=== PATIENT | female | born 1955 | race Caucasian/White ===

== ENCOUNTER → 2021-08-22 15:11 | Outpatient (CLI) | payer MEDICARE, BC, OTHER, SELFPAY ==
[2021-08-22 14:06] LABS: Alanine Aminotransferase 25 U/L (12-78); Albumin Level 4.3 g/dl (3.5-5.0); Albumin/Globulin Ratio 1.3 (1.1-1.8); Anion Gap 14.7 mEq/L (5-15); Aspartate Amino Transferase 31 U/L (14-36); Bilirubin,Total 0.2 mg/dl (0.2-1.3); Blood Urea Nitrogen 16 mg/dl (7-17); Carbon Dioxide 24 mmol/L (22.0-30.0); Chloride 105 mmol/L (98-107); Estimated Glomerular Filt Rate 72 ml/min (>60); GFR (African American) 87 ML/MIN (>60); Globulin 3.4 g/dL (1.3-3.2); Glucose 120 mg/dl (74-100); Potassium 4.7 mmoL/L (3.5-5.1); Sodium 139 mmol/L (136-145); Total Protein,Serum 7.7 g/dl (6.3-8.2); Triglycerides 144 mg/dl (30-150)
[2021-08-22 14:07] LABS: Alkaline Phosphatase 111 U/L (38-126); Basophils # 0.1 K/mm3 (0-0.2); Basophils % 0.9 % (0.1-2.0); Chol/HDL Ratio 4.2 (1-3.5); Cholesterol 208 mg/dl (140-200); Eosinophils # 0.2 K/mm3 (0.0-0.4); Eosinophils % 2.3 % (0.1-12.0); HDL Cholesterol 50 mg/dl (40-60); Hematocrit 48.3 % (37.0-47.0); Lymphocytes % 27.6 % (10-50); Mean Corpuscular HGB Conc 31.1 g/dL (31.8-35.4); Mean Corpuscular Hemoglobin 30.7 pg (27.0-31.2); Mean Corpuscular Volume 98.7 fl (81-99); Mean Platelet Volume 9.2 fl (7.4-10.4); Monocytes # 0.7 K/mm3 (0.1-1.0); Neutrophils # 4.4 K/mm3 (1.8-7.8); Neutrophils % 60.2 % (37.0-80.0); Platelet Count 352 K/mm3 (142-424); Red Blood Count 4.89 M/mm3 (4.20-5.40); Red Cell Distribution Width 13.6 % (11.5-17.5); VLDL Cholesterol 29 mg/dL (0-40); White Blood Count 7.4 K/mm3 (4.8-10.8)
[2021-08-22 14:18] LABS: Direct LDL Cholesterol 117.48 mg/dL (100-129)
[2021-08-22 14:21] LABS: T4 (Thyroxine) 11.7 ug/dl (5.53-11.0)
[2021-08-22 14:22] LABS: 25-OH Vitamin D, Total 36.7 ng/mL (30-100)
[2021-08-22 14:35] LABS: Thyroid Stimulating Hormone < 0.02 uIU/mL (0.465-4.68)
== END ==
PROVIDERS: PCP Nurse Practitioner Family; Visit Provider Nurse Practitioner Family
DX: I10 Essential (primary) hypertension (principal); E78.2 Mixed hyperlipidemia; R53.83 Other fatigue; Z00.00 Encounter for general adult medical examination without abnormal findings; E03.9 Hypothyroidism, unspecified; E55.9 Vitamin D deficiency, unspecified
CPT/HCPCS: 80053; 80061; 82306; 84436; 84443; 85025

== ENCOUNTER → 2022-04-17 09:30 | Outpatient (CLI) | payer MEDICARE, BC, OTHER, SELFPAY ==
[2022-04-17 14:11] LABS: Basophils # 0.1 K/mm3 (0-0.2); Basophils % 0.8 % (0.1-2.0); Eosinophils # 0.1 K/mm3 (0.0-0.4); Eosinophils % 1.8 % (0.1-12.0); Hematocrit 44.3 % (37.0-47.0); Hemoglobin 14.4 g/dL (12.2-16.2); Lymphocytes # 1.9 K/mm3 (0.7-4.5); Lymphocytes % 23.7 % (10-50); Mean Corpuscular HGB Conc 32.4 g/dL (31.8-35.4); Mean Corpuscular Hemoglobin 30.3 pg (27.0-31.2); Mean Corpuscular Volume 93.3 fl (81-99); Mean Platelet Volume 8.9 fl (7.4-10.4); Monocytes # 0.6 K/mm3 (0.1-1.0); Monocytes % 7.5 % (1.7-9.3); Neutrophils # 5.2 K/mm3 (1.8-7.8); Neutrophils % 66.1 % (37.0-80.0); Platelet Count 360 K/mm3 (142-424); Red Blood Count 4.75 M/mm3 (4.20-5.40); Red Cell Distribution Width 13.2 % (11.5-17.5); White Blood Count 7.8 K/mm3 (4.8-10.8)
[2022-04-17 14:42] LABS: Alanine Aminotransferase 23 U/L (12-78); Albumin Level 4.4 g/dl (3.5-5.0); Albumin/Globulin Ratio 1.4 (1.1-1.8); Alkaline Phosphatase 110 U/L (38-126); Anion Gap 9.4 mEq/L (5-15); Aspartate Amino Transferase 33 U/L (14-36); Bilirubin,Total 0.5 mg/dl (0.2-1.3); Blood Urea Nitrogen 9 mg/dl (7-17); Calcium 9.1 mg/dl (8.4-10.2); Carbon Dioxide 24 mmol/L (22.0-30.0); Chloride 109 mmol/L (98-107); Chol/HDL Ratio 3.6 (1-3.5); Cholesterol 195 mg/dl (140-200); Estimated Glomerular Filt Rate 83 ml/min (>60); GFR (African American) 101 ML/MIN (>60); Globulin 3.2 g/dL (1.3-3.2); Glucose 120 mg/dl (74-100); HDL Cholesterol 54 mg/dl (40-60); Potassium 4.4 mmoL/L (3.5-5.1); Sodium 138 mmol/L (136-145); Total Protein,Serum 7.6 g/dl (6.3-8.2); Triglycerides 176 mg/dl (30-150); VLDL Cholesterol 35 mg/dL (0-40)
[2022-04-17 14:53] LABS: Direct LDL Cholesterol 106.18 mg/dL (100-129)
[2022-04-17 14:57] LABS: 25-OH Vitamin D, Total 56.2 ng/mL (30-100)
[2022-04-17 15:15] LABS: Thyroid Stimulating Hormone < 0.02 uIU/mL (0.465-4.68)
[2022-04-17 15:43] LABS: Hemoglobin A1C 5.7 % (4.0-6.0)
== END ==
PROVIDERS: PCP Nurse Practitioner Family; Visit Provider Nurse Practitioner Family
DX: E55.9 Vitamin D deficiency, unspecified (principal); E03.9 Hypothyroidism, unspecified; R73.03 Prediabetes; R53.83 Other fatigue
CPT/HCPCS: 80053; 80061; 82306; 83036; 84443; 85025

== ENCOUNTER 2023-02-21 11:35 | Outpatient (CLI) | payer MEDICARE, OTHER, SELFPAY ==
[2023-02-21 11:46] LABS: Cholesterol 194 mg/dl (140-200); Triglycerides 123 mg/dl (30-150); VLDL Cholesterol 25 mg/dL (0-40)
[2023-02-21 11:47] LABS: Chol/HDL Ratio 4.4 (1-3.5); HDL Cholesterol 44 mg/dl (40-60)
[2023-02-21 11:57] LABS: Direct LDL Cholesterol 113.09 mg/dL (100-129)
[2023-02-21 12:17] LABS: Thyroid Stimulating Hormone < 0.02 uIU/mL (0.465-4.68)
== END 2023-02-21 23:59 ==
LOC: LAB.DROPOF 11:36
PROVIDERS: PCP Nurse Practitioner Family; Visit Provider Nurse Practitioner Family
DX: E03.9 Hypothyroidism, unspecified (principal); E78.5 Hyperlipidemia, unspecified; R53.83 Other fatigue
CPT/HCPCS: 80061; 84443

== ENCOUNTER 2023-08-19 20:25 | Outpatient (CLI) | payer MEDICARE, OTHER, SELFPAY ==
[2023-08-19 21:32] LABS: Basophils % 0.4 % (0.1-2.0); Eosinophils # 0.2 K/mm3 (0.0-0.4); Eosinophils % 1.8 % (0.1-12.0); Hematocrit 43.9 % (37.0-47.0); Lymphocytes # 2.2 K/mm3 (0.7-4.5); Lymphocytes % 28.1 % (10-50); Mean Corpuscular Hemoglobin 30.3 pg (27.0-31.2); Mean Corpuscular Volume 94.8 fl (81-99); Mean Platelet Volume 9.9 fl (7.4-10.4); Monocytes # 0.6 K/mm3 (0.1-1.0); Neutrophils # 4.9 K/mm3 (1.8-7.8); Neutrophils % 61.7 % (37.0-80.0); Platelet Count 325 K/mm3 (142-424); Red Blood Count 4.63 M/mm3 (4.20-5.40); Red Cell Distribution Width 13.8 % (11.5-17.5)
[2023-08-19 21:48] LABS: Alanine Aminotransferase 20 U/L (12-78); Albumin Level 4.4 g/dl (3.5-5.0); Albumin/Globulin Ratio 1.3 (1.1-1.8); Alkaline Phosphatase 101 U/L (38-126); Anion Gap 15.2 mEq/L (5-15); Aspartate Amino Transferase 27 U/L (14-36); Bilirubin,Total 0.5 mg/dl (0.2-1.3); Blood Urea Nitrogen 13 mg/dl (7-17); Calcium 10.2 mg/dl (8.4-10.2); Carbon Dioxide 23 mmol/L (22.0-30.0); Chloride 107 mmol/L (98-107); Chol/HDL Ratio 4.9 (1-3.5); Cholesterol 238 mg/dl (140-200); Estimated Glomerular Filt Rate 83 ml/min (>60); GFR (African American) 100 ML/MIN (>60); Globulin 3.5 g/dL (1.3-3.2); Glucose 111 mg/dl (74-100); HDL Cholesterol 49 mg/dl (40-60); Potassium 4.2 mmoL/L (3.5-5.1); Sodium 141 mmol/L (136-145); Total Protein,Serum 7.9 g/dl (6.3-8.2); Triglycerides 221 mg/dl (30-150); VLDL Cholesterol 44 mg/dL (0-40)
[2023-08-19 21:59] LABS: Direct LDL Cholesterol 138.07 mg/dL (100-129)
[2023-08-19 22:19] LABS: Thyroid Stimulating Hormone < 0.02 uIU/mL (0.465-4.68)
[2023-08-20 16:27] LABS: Hemoglobin A1C 5.9 % (4.0-6.0)
== END 2023-08-19 23:59 | disposition home or self-care (01) ==
LOC: LAB.DROPOF 20:26
PROVIDERS: PCP Nurse Practitioner Family; Visit Provider Nurse Practitioner Family
DX: E03.9 Hypothyroidism, unspecified (principal); R73.03 Prediabetes; E55.9 Vitamin D deficiency, unspecified; M54.9 Dorsalgia, unspecified
CPT/HCPCS: 80053; 80061; 82306; 83036; 84443; 85025

== ENCOUNTER 2023-11-12 08:38 | Outpatient (CLI) | payer MEDICARE, OTHER, SELFPAY ==
--- NOTE | 2023-11-12 08:46 | XR_ITS ---
FINAL REPORT CLINICAL HISTORY: LEFT HIP PAIN COMPARISON: None FINDINGS: LEFT HIP: Two views of the left hip with an AP pelvis demonstrate no acute fracture or dislocation. There are minimal hypertrophic changes at the acetabular margin. The hip joint space is preserved. The visualized bony structures are well aligned. No soft tissue abnormality is seen. IMPRESSION: Minimal degenerative changes without acute bony abnormality. Reviewed, Interpreted and Dictated by Vipul Nicole MD Transcribed by Karen Hylton Authenticated and [facility]
== END 2023-11-12 23:59 | disposition home or self-care (01) ==
LOC: RAD 08:40
PROVIDERS: PCP Nurse Practitioner Family; Visit Provider Nurse Practitioner Family
DX: M25.552 Pain in left hip (principal)
CPT/HCPCS: 73502

== ENCOUNTER 2024-01-14 09:55 | Outpatient (POV) | payer MEDICARE, OTHER, SELFPAY ==
--- NOTE | 2024-01-14 10:14 | EXP.PAIN.OV ---
HPI Data of Consult Patient: new to practice Consult date: 01/14/24 Requesting Physician: Yue Briscoe APRN Primary Care Provider: Killian Ordoñez APRN Consult Narrative Reason for consult: Low back pain, left buttocks pain, left upper thigh pain History of present illness: Ms. French is a 68 year old female who presents today as a new patient. She is a referral from Killian White's office. Today she rates her pain at 3 out of 10 however does state the pain will go up to more than a 7 or 8 out of 10 with increased activity. Patient does state Thanksgiving she was absolutely miserable due to the increased activity and cooking all day. Patient states the pain is all in her low back along the left side that does go into her left buttocks and into her left upper thigh. Patient describes this as an aching, throbbing sensation with numbness and tingling. Patient does state that it has been going on for more than a year and does seem to always be worse at night. Patient does state that the pain is worse with prolonged activity such as standing or sitting. Patient states she frequently has to change positions due to the worsening pain and cannot lay on her left side due to this. 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 Patient has tried conservative treatment including oral medications such as Tylenol and ibuprofen along with heat and ice and topicals with no additional relief. Patient has completed physical therapy with no additional change and does continue at home stretching exercise for longer than 12 weeks with minimal improvement. Patient denies any prior surgery or injection history. Her Luis has been reviewed and is appropriate. CC: Yue Briscoe APRN [facility] Disclaimer: The information contained in this section may have been updated after the patient was seen, as this information can be updated by other users. Medical History Left hip pain Hyperlipemia, mixed Fatigue Hypothyroidism Family History (Updated 01/14/24 @ 10:17 by Argelia Chicas RN) Other Unknown family medical history Social History (Updated 01/06/24 @ 09:35 by Killian Ordoñez APRN) Smoking Status: Never smoker alcohol intake: current alcohol intake frequency: holidays/special occasions only substance use type: denies use current occupational status: other Travel in the last 8 weeks: None Review of Systems Review of Systems Review of systems:: pertinent systems reviewed and negative unless documented below Review of systems (narrative): Review of Systems: General: No recent weight changes, no fever, no sleep disturbances Respiratory: No cough, no shortness of air, no recurring pulmonary infections Cardiovascular/peripheral vascular: No chest pain, no palpitations, no edema, no shortness of breath Gastrointestinal: No new onset incontinence, normal bowel movements reported Genitourinary: No new onset incontinence Musculoskeletal: Low back pain, left buttocks pain, left upper thigh pain Psychiatric: [Normal mood/affect] Neurological: [Denies weakness in extremities], [denies balance issues] Meds Home Medications and Allergies Home Medications ?Medication ?Instructions ?Recorded ?Confirmed ?Type aspirin 81 mg tablet,delayed 81 mg PO DAILY #90 tabs 03/25/19 01/06/24 Rx release (Adult Low Dose Aspirin) ergocalciferol (vitamin D2) 1,250 50,000 unit PO QWEEK vitamin d 02/28/23 01/06/24 Rx mcg (50,000 unit) capsule deficiency #12 caps simvastatin 10 mg tablet See Rx Instructions .Route 08/21/23 01/06/24 Rx .COMPLEX #90 tabs hydroxyzine pamoate 25 mg capsule 25 mg PO TID PRN itching #30 caps 11/20/23 01/06/24 Rx (Vistaril) levothyroxine 100 mcg capsule 100 mcg PO DAILY #90 caps 11/20/23 01/06/24 Rx ascorbate calcium (vitamin C) 500 500 mg PO DAILY 12/23/23 01/06/24 History mg tablet naproxen 500 mg tablet 500 mg PO BID #30 tabs 12/23/23 01/06/24 Rx New Prescriptions to Start Prescriptions: Allergies Allergy/AdvReac Type Severity Reaction Status Date / Time No Known Allergies Allergy Verified 01/06/24 09:00 Objective Narrative: Physical Exam: General: Alert and oriented x3, no acute distress, pleasant and cooperative Lungs: Respirations even and unlabored, symmetrical chest expansion Eyes: PERRL Musculoskeletal: Flexion and extension of lumbar [spine] somewhat guarded secondary to pain, [antalgic gait noted] point tenderness along left SI with positive left Nii's, Melisa's, Gaenslen's, compression and distraction exam Neurological: Speech clear, no gross sensory deficit Additional findings Additional findings: MRI lumbar spine without contrast December 05, 2023 [facility] Findings: There are chronic degenerative endplate changes with several Schmorl's node formations. There is a small amount of acute bone edema noted along the endplates of the L3-L4 posteriorly and to a lesser extent at the L4-L5 level which are considered Modic type I changes with microtrabecular fracturing. There are inflammatory changes noted of the articular facets at the L4-L5 and L5-S1 levels. There is a grade 1 retrolisthesis of L2 on L3 and L3 on L4. There is a grade 1 anterior listhesis of L4 on L5. There is epidural fat most pronounced along the dorsal canal which does contribute to canal narrowing. There is clumping of the nerve roots. T12-L2 no significant findings L2-L3: Concentric disc bulge with mild articular facet disease and ligamentum flavum hypertrophy. Small posterior central disc protrusion and mild canal narrowing and foraminal narrowing L3-L4 disc osteophyte complex formation with moderate articular facet disease and mild ligamentum flavum hypertrophy. There is moderate canal and foraminal narrowing worse on the left. L4-L5: Disc osteophyte complex formation with advanced articular facet disease and ligamentum flavum hypertrophy. Severe canal and moderate foraminal narrowing L5-S1: Small posterior central disc protrusion. Mild foramen narrowing. Disc material extending out into the foraminal region on the left likely a protrusion that contacts the exiting L5 nerve root Assessment and Plan *Assessment and plan (1) Lumbar nerve root impingement: Status: Acute Category: Medical Code(s): M54.16 - Radiculopathy, lumbar region (2) Spinal stenosis: Status: Acute Category: Medical Code(s): M48.00 - Spinal stenosis, site unspecified (3) Bulging lumbar disc: Status: Acute Category: Medical Code(s): M51.369 - Other intervertebral disc degeneration, lumbar region without mention of lumbar back pain or lower extremity pain (4) Left hip pain: Status: Acute Category: Medical Code(s): M25.552 - Pain in left hip (5) Sacroiliitis: Status: Acute Category: Medical Code(s): M46.1 - Sacroiliitis, not elsewhere classified Plan Patient is experiencing significant pain in her low back with limited range of motion of her lumbar spine. Patient did have point tenderness along her left SI with a positive left Nii's, Melisa's, Gaenslen's, compression and distraction exam. I did discuss with the patient that I do believe she would benefit from a left SI injection. Risk and benefits were discussed with the patient and she would like to proceed forward with this plan of care. Patient has tried and failed conservative therapy including recent physical therapy and continued at home stretching and exercise that was physician guided for longer than 12 weeks. Patient has been experiencing this pain for over a year. Patient will also be ordered a compounded cream. Patient will be scheduled for left SI injection under fluoroscopy. Patient has been instructed to contact the clinic with any concerns before the next appointment. Dr. Kwok has reviewed this note and agrees with this plan of care. This note was dictated using voice recognition software and make contain errors or omissions. All injections are used with Lidocaine or Bupivacaine and Depo Medrol.
[2024-01-14 10:16] VITALS: BP 157/85; PULSE 95; RESP 18; O2SAT 96; BMI 38.6
== END 2024-01-14 23:59 | disposition home or self-care (01) ==
LOC: SC.PAIN 09:57
PROVIDERS: PCP Nurse Practitioner Family; Visit Provider Nurse Practitioner Family
DX: M51.16 Intervertebral disc disorders with radiculopathy, lumbar region (principal); M48.00 Spinal stenosis, site unspecified; M25.552 Pain in left hip; M46.1 Sacroiliitis, not elsewhere classified
CPT/HCPCS: 99202; G0463

== ENCOUNTER 2024-02-10 10:08 | Day surgery (SDC) | payer MEDICARE, OTHER, SELFPAY ==
[2024-02-10 10:41] VITALS: BP 172/96; PULSE 92; RESP 16; TEMP 36.2; O2SAT 97; BMI 34.3
[2024-02-10 11:31] VITALS: BP 161/97; PULSE 70; RESP 16; TEMP 36.9; O2SAT 98
--- NOTE | 2024-02-10 11:31 | P.PCN_ITS ---
Procedure Date: 02/10/24 Time: 11:10 Anesthesiologist:: Calderon Chaidez CRNA Complications:: None Pre-procedure Diagnosis:: Left sacroiliitis Post-procedure Diagnosis:: Same Indications for Procedure:: Patient is a very pleasant 68-year-old female who comes our clinic today for the left sacroiliac joint injection of cortisone and local anesthetic. She describes low lumbar back pain off the midline to the left. Also, left posterior hip pain. Describes difficulty transitioning from sitting to standing. She rates her pain 7/10. Procedure Details:: Procedure: Left sacroiliac injection under fluoroscopy Informed consent was obtained and the risk and benefits of the procedure were explained to the patient.~ The patient was taken to the procedure room and noninvasive monitors were placed including noninvasive blood pressure cuff and p ulse oximeter.~ The patient was placed prone on the procedure table.~ The~ left hip was cleansed using Betadine as a cleansing solution.~ C-arm fluorosocpy was used to view the left SI joint.~ The skin and subcutaneous tissues were anesthetized using Lidocaine 1.5% and a 25-gauge needle.~ After this, a 22-gauge spinal needle was inserted under fluoroscopic guidance into the inferior aspect of the left SI joint.~ Omnipaque dye was injected and a good spread was seen throughout the joint.~ After this, approximately 5 mL of bupivacaine 0.25% and Depo-Medrol 40 mg was incrementally injected into the sacroiliac joint.~ The patient tolerated the procedure well with no complications.~ The patient was observed in the Pain Clinic for a period of 30-45 minutes, then discharged home neurologically intact.~ Plan and Disposition:: Patient was discharged without incident.
[2024-02-10] MEDS: BUPIVACAINE 0.25% 10ML INJ 25 MG IJ (11:46)
[2024-02-10] MEDS: methylPREDNISolone ACETATE 80MG/ML VIAL 80 MG (11:46)
[2024-02-10] MEDS: LIDOCAINE 1% 5ML PF VIAL 5 ML (11:46)
[2024-02-10 11:52] VITALS: BP 180/80; PULSE 74; RESP 18; O2SAT 95
[2024-02-10 12:06] VITALS: BP 180/80; PULSE 74; RESP 18; O2SAT 95
== END 2024-02-10 11:31 | disposition home or self-care (01) ==
PROVIDERS: PCP Nurse Practitioner Family; Visit Provider Nurse Anesthetist, Certified Registered
DX: M46.1 Sacroiliitis, not elsewhere classified (principal)
CPT/HCPCS: 27096; G0260; J1010

== ENCOUNTER 2024-02-27 13:34 | Outpatient (POV) | payer MEDICARE, OTHER, SELFPAY ==
[2024-02-27 14:05] VITALS: BP 160/94; PULSE 97; RESP 14; O2SAT 97; BMI 40.2
--- NOTE | 2024-02-27 14:58 | EXP.PAIN.SOA ---
[facility] Disclaimer: The information contained in this section may have been updated after the patient was seen, as this information can be updated by other users. Medical History Left hip pain Hyperlipemia, mixed Fatigue Hypothyroidism Family History Other Unknown family medical history Social History Smoking Status: Never smoker alcohol intake: current alcohol intake frequency: holidays/special occasions only substance use type: denies use current occupational status: other Travel in the last 8 weeks: None PM Subjective & Objective Subjective Subjective:: Patient is a pleasant 69-year-old female who presents today for follow-up of left SI injection on 02/10/2024. Today she rates her pain at 3 out of 10. She does state that she has had at least 80% improvement and feels like it is still working. She does state that some days it feels more like about 50 to 60% but it has been significant. Patient states that the pain is not as severe and not as constant. She does state that she will occasionally have a little numbness at times still in the upper thigh however it is nothing like what it was. She does state that she does notice a little bit more sensation that is more prominent when she is trying to lay down and go to sleep or when she has been up on her feet for longer periods of time. She does state that the topical cream did significantly help and she is already ordered her second bottle however it is stuck in [place] and believes this is related to the weather. She does state that she is hoping to get it very soon. Her Luis has been reviewed and is appropriate. Review of Systems: General: No recent weight changes, no fever, no sleep disturbances Respiratory: No cough, no shortness of air, no recurring pulmonary infections Cardiovascular/peripheral vascular: No chest pain, no palpitations, no edema, no shortness of breath Gastrointestinal: No new onset incontinence, normal bowel movements reported Genitourinary: No new onset incontinence Musculoskeletal: Low back pain Psychiatric: [Normal mood/affect] Neurological: [Denies weakness in extremities], [denies balance issues] Pain at rest (0-10 scale): 3 Objective Objective:: Physical Exam: General: Alert and oriented x3, no acute distress, pleasant and cooperative Lungs: Respirations even and unlabored, symmetrical chest expansion Eyes: PERRL Musculoskeletal: Flexion and extension of lumbar [spine] somewhat guarded secondary to pain, [antalgic gait noted] Neurological: Speech clear, no gross sensory deficit Has patient had previous pain injection?: Yes Percent improvement in pain since last injection: 80% Conservative treatment options previously tried: Home exercise plan Length of treatment: Longer than 12 weeks Meds Home Medications and Allergies Home Medications ?Medication ?Instructions ?Recorded ?Confirmed ?Type aspirin 81 mg tablet,delayed 81 mg PO DAILY #90 tabs 03/25/19 02/27/24 Rx release (Adult Low Dose Aspirin) ergocalciferol (vitamin D2) 1,250 50,000 unit PO QWEEK vitamin d 02/28/23 02/27/24 Rx mcg (50,000 unit) capsule deficiency #12 caps simvastatin 10 mg tablet See Rx Instructions .Route 08/21/23 02/27/24 Rx .COMPLEX #90 tabs hydroxyzine pamoate 25 mg capsule 25 mg PO TID PRN itching #30 caps 11/20/23 02/27/24 Rx (Vistaril) levothyroxine 100 mcg capsule 100 mcg PO DAILY #90 caps 11/20/23 02/27/24 Rx ascorbate calcium (vitamin C) 500 500 mg PO DAILY 12/23/23 02/27/24 History mg tablet naproxen 500 mg tablet 500 mg PO BID #30 tabs 12/23/23 02/27/24 Rx New Prescriptions to Start Prescriptions: Allergies Allergy/AdvReac Type Severity Reaction Status Date / Time No Known Allergies Allergy Verified 01/06/24 09:00 Assessment and Plan *Assessment and plan (1) Sacroiliitis: Status: Acute Category: Medical Code(s): M46.1 - Sacroiliitis, not elsewhere classified Plan Patient has had significant improvement and does not require any additional injection therapy at this time. Patient will return to clinic in 6 weeks for reevaluation of symptoms and plan of care. I will send in a prescription of methocarbamol 500 mg twice daily as needed and supplied a 2-week dose of this medication. Patient was counseled to call our office if this does help and she would like additional refills. Patient has been instructed to contact the clinic with any concerns before the next appointment. Dr. Kwok has reviewed this note and agrees with this plan of care. This note was dictated using voice recognition software and make contain errors or omissions. All injections are used with Lidocaine, Bupivacaine and Depo Medrol. Occasionally urine drug screen is needed to verify patient's compliance with our office pain contract. This is ordered based off specific treatments related to chronic pain with the potential to abuse certain medications.
== END 2024-02-27 23:59 | disposition home or self-care (01) ==
PROVIDERS: PCP Nurse Practitioner Family; Visit Provider Nurse Practitioner Family
DX: M46.1 Sacroiliitis, not elsewhere classified (principal)
CPT/HCPCS: 99212; G0463

== ENCOUNTER 2024-04-09 14:02 | Outpatient (POV) | payer MEDICARE, OTHER, SELFPAY ==
[2024-04-09 14:14] VITALS: BP 144/89; PULSE 84; RESP 16; O2SAT 95; BMI 36.8
--- NOTE | 2024-04-09 14:37 | A.OFFVIS_ITS ---
[facility] Disclaimer: The information contained in this section may have been updated after the patient was seen, as this information can be updated by other users. Medical History Left hip pain Hyperlipemia, mixed Fatigue Hypothyroidism Family History Other Unknown family medical history Social History Smoking Status: Never smoker alcohol intake: current alcohol intake frequency: holidays/special occasions only substance use type: denies use current occupational status: other Travel in the last 8 weeks: None PM Subjective & Objective Subjective Subjective:: Patient is a pleasant 69-year-old female who presents today for worsening pain. Today she rates her pain as a 7 out of 10. Patient does state from our last visit the pain is now going from her low back all the way down her left leg with numbness and tingling. Patient does state that occasionally it will go down the right leg however it is just not as often. Patient states the pain is interfering with her ability perform activities of daily living such as cooking and cleaning and is interested in any and all help we may be able to provide. Patient has continued conservative treatment including at home stretching exercise for longer than 12 weeks. Patient has been continuing to use a topical cream. Patient was given methocarbamol 500 mg twice a day from our office. She denies any side effects. Her Luis has been reviewed and is appropriate. Review of Systems: General: No recent weight changes, no fever, no sleep disturbances Respiratory: No cough, no shortness of air, no recurring pulmonary infections Cardiovascular/peripheral vascular: No chest pain, no palpitations, no edema, no shortness of breath Gastrointestinal: No new onset incontinence, normal bowel movements reported Genitourinary: No new onset incontinence Musculoskeletal: Low back pain, bilateral leg pain Psychiatric: [Normal mood/affect] Neurological: [Denies weakness in extremities], [denies balance issues] Pain at rest (0-10 scale): 7 Objective Objective:: Physical Exam: General: Alert and oriented x3, no acute distress, pleasant and cooperative Lungs: Respirations even and unlabored, symmetrical chest expansion Eyes: PERRL Musculoskeletal: Flexion and extension of lumbar [spine] somewhat guarded secondary to pain, [antalgic gait noted] positive left leg raise Neurological: Speech clear, no gross sensory deficit December 05, 2023 [facility] Findings: There are chronic degenerative endplate changes with several Schmorl's node formations. There is a small amount of acute bone edema noted along the endplates of the L3-L4 posteriorly and to a lesser extent at the L4-L5 level which are considered Modic type I changes with microtrabecular fracturing. There are inflammatory changes noted of the articular facets at the L4-L5 and L5-S1 levels. There is a grade 1 retrolisthesis of L2 on L3 and L3 on L4. There is a grade 1 anterior listhesis of L4 on L5. There is epidural fat most pronounced along the dorsal canal which does contribute to canal narrowing. There is clumping of the nerve roots. T12-L2 no significant findings L2-L3: Concentric disc bulge with mild articular facet disease and ligamentum flavum hypertrophy. Small posterior central disc protrusion and mild canal narrowing and foraminal narrowing L3-L4 disc osteophyte complex formation with moderate articular facet disease and mild ligamentum flavum hypertrophy. There is moderate canal and foraminal narrowing worse on the left. L4-L5: Disc osteophyte complex formation with advanced articular facet disease and ligamentum flavum hypertrophy. Severe canal and moderate foraminal narrowing L5-S1: Small posterior central disc protrusion. Mild foramen narrowing. Disc material extending out into the foraminal region on the left likely a protrusion that contacts the exiting L5 nerve root Has patient had previous pain injection?: No Conservative treatment options previously tried: Home exercise plan Length of treatment: Longer than 12 weeks Meds Home Medications and Allergies Home Medications ?Medication ?Instructions ?Recorded ?Confirmed ?Type aspirin 81 mg tablet,delayed 81 mg PO DAILY #90 tabs 03/25/19 04/09/24 Rx release (Adult Low Dose Aspirin) ergocalciferol (vitamin D2) 1,250 50,000 unit PO QWEEK vitamin d 02/28/23 04/09/24 Rx mcg (50,000 unit) capsule deficiency #12 caps simvastatin 10 mg tablet See Rx Instructions .Route 08/21/23 04/09/24 Rx .COMPLEX #90 tabs hydroxyzine pamoate 25 mg capsule 25 mg PO TID PRN itching #30 caps 11/20/23 04/09/24 Rx (Vistaril) levothyroxine 100 mcg capsule 100 mcg PO DAILY #90 caps 11/20/23 04/09/24 Rx ascorbate calcium (vitamin C) 500 500 mg PO DAILY 12/23/23 04/09/24 History mg tablet naproxen 500 mg tablet 500 mg PO BID #30 tabs 12/23/23 04/09/24 Rx methocarbamol 500 mg tablet 500 mg PO BID #28 tabs 02/27/24 04/09/24 Rx New Prescriptions to Start Prescriptions: Allergies Allergy/AdvReac Type Severity Reaction Status Date / Time No Known Allergies Allergy Verified 01/06/24 09:00 Assessment and Plan *Assessment and plan (1) Left leg pain: Status: Acute Category: Medical Code(s): M79.605 - Pain in left leg (2) Lumbar radiculopathy: Status: Acute Category: Medical Code(s): M54.16 - Radiculopathy, lumbar region (3) Degenerative disc disease: Status: Acute Category: Medical Plan Patient is experiencing worsening pain in her low back that does radiate down her entire left extremity with numbness and tingling. Patient did have limited range of motion of her lumbar spine with a positive left leg raise. Patient's last lumbar MRI imaging did show possible nerve root impingement at the L5-S1 level. Patient did have more extreme tenderness with palpation at roughly the L5-S1 level during today's exam. I have reviewed over the risk and benefits of lumbar epidural steroid injection the patient would like to proceed forward with this plan of care. Patient has tried and failed conservative measure including oral medication, heat and ice, topicals, at home stretching exercise for longer than 12 weeks with no additional improvement. Patient will be scheduled for her first lumbar epidural steroid injection with our office at the L5-S1 level under fluoroscopy. Patient has been instructed to contact the clinic with any concerns before the next appointment. Dr. Kwok has reviewed this note and agrees with this plan of care. This note was dictated using voice recognition software and make contain errors or omissions. All injections are used with Lidocaine, Bupivacaine and Depo Medrol. Occasionally urine drug screen is needed to verify patient's compliance with our office pain contract. This is ordered based off specific treatments related to chronic pain with the potential to abuse certain medications.
== END 2024-04-09 23:59 | disposition home or self-care (01) ==
LOC: SC.PAIN 14:05
PROVIDERS: PCP Nurse Practitioner Family; Visit Provider Nurse Practitioner Family
DX: M79.605 Pain in left leg (principal); M54.16 Radiculopathy, lumbar region; Z73.89 Other problems related to life management difficulty
CPT/HCPCS: 99212; G0463

== ENCOUNTER 2024-05-04 11:50 | Day surgery (SDC) | payer MEDICARE, OTHER, SELFPAY ==
[2024-05-04 11:59] VITALS: BP 134/89; PULSE 109; RESP 16; TEMP 36.8; O2SAT 92; BMI 41.1
--- NOTE | 2024-05-04 12:21 | EXP.PAIN.PRO ---
Procedure Date: 05/04/24 Time: 12:10 Anesthesiologist:: Calderon Chaidez CRNA Complications:: None Pre-procedure Diagnosis:: Degenerative disc lumbar spine multilevels. Lumbar radiculopathy. Post-procedure Diagnosis:: Same. Indications for Procedure:: Patient is a very pleasant 69-year-old female who comes our clinic today for lumbar epidural steroid injection to the L5-S1 level. Patient describes low lumbar back pain as well as bilateral hip and leg radicular symptoms. Left greater than right. Patient reporting left anterior thigh pain. She rates her pain 7/10. Procedure Details:: Procedure: Lumbar epidural steroid injection under fluoroscopy Informed consent was obtained and the risks and benefits of the procedure were explained to the patient. The patient was taken to the procedure room and noninvasive monitors placed, including noninvasive blood pressure cuff and pulse oximeter. The back was viewed using C-arm Fluoroscopy and prepped using Chloraprep as a cleansing solution and the L5-S1 interspace was palpated. Skin and subcutaneous tissues were anesthetized using lidocaine 1.5% and a 25-gauge needle. After this, an 18-gauge Touhy epidural needle was placed into the L5-S1 interspace and advanced using fluoroscopic guidance and loss of resistance to air until the epidural space was encountered. After confirmation of needle placement in the epidural space, with dye, a solution containing normal saline, 3 mL and Depo-Medrol 80 mg were incrementally injected into the lumbar epidural space. The patient tolerated the procedure well with no complications. The patient was observed in the Pain Clinic and then discharged home neurologically intact. Plan and Disposition:: Patient was discharged without incident.
[2024-05-04 12:27] VITALS: BP 146/85; PULSE 87; RESP 18; O2SAT 94
[2024-05-04] MEDS: methylPREDNISolone ACETATE 80MG/ML VIAL 80 MG (12:27)
[2024-05-04 12:28] VITALS: BP 146/85; PULSE 87; RESP 18; O2SAT 94
[2024-05-04 12:29] VITALS: BP 125/90; PULSE 80; RESP 16; O2SAT 100
== END 2024-05-04 12:29 | disposition home or self-care (01) ==
PROVIDERS: PCP Nurse Practitioner Family; Visit Provider Nurse Anesthetist, Certified Registered
DX: M51.16 Intervertebral disc disorders with radiculopathy, lumbar region (principal)
CPT/HCPCS: 62323; J1010

== ENCOUNTER 2024-05-17 13:23 | Outpatient (POV) | payer MEDICARE, OTHER, SELFPAY ==
--- NOTE | 2024-05-17 14:21 | EXP.PAIN.SOA ---
[facility] Disclaimer: The information contained in this section may have been updated after the patient was seen, as this information can be updated by other users. Medical History Left hip pain Hyperlipemia, mixed Fatigue Hypothyroidism Family History Other Unknown family medical history Social History Smoking Status: Never smoker alcohol intake: current alcohol intake frequency: holidays/special occasions only substance use type: denies use current occupational status: other Travel in the last 8 weeks: None PM Subjective & Objective Subjective Subjective:: Patient is a pleasant 69-year-old female who presents today for follow-up of lumbar epidural steroid injection L5-S1 on 05/04/2024. Today she rates her pain a 8 out of 10. Patient states that she just felt like this really did not seem to make much improvement. Patient is still having the chronic low back pain that radiates all across her back and does go into her hips primarily the left side. Patient states that certain activity does seem to really aggravate overall this pain. Patient does states that she also feels like she has a lot of cramping sensations in her upper left thigh that is fairly constant. She states her pain in general all across her low back is interfering with her ability perform activities of daily living such as cooking and cleaning. Patient is interested in any additional help we may be able to provide. Patient has continued conservative treatment with no additional improvement. Her Luis has been reviewed and is appropriate. Review of Systems: General: No recent weight changes, no fever, no sleep disturbances Respiratory: No cough, no shortness of air, no recurring pulmonary infections Cardiovascular/peripheral vascular: No chest pain, no palpitations, no edema, no shortness of breath Gastrointestinal: No new onset incontinence, normal bowel movements reported Genitourinary: No new onset incontinence Musculoskeletal: Low back pain Psychiatric: [Normal mood/affect] Neurological: [Denies weakness in extremities], [denies balance issues] Pain at rest (0-10 scale): 8 Objective Objective:: Physical Exam: General: Alert and oriented x3, no acute distress, pleasant and cooperative Lungs: Respirations even and unlabored, symmetrical chest expansion Eyes: PERRL Musculoskeletal: Flexion and extension of lumbar [spine] somewhat guarded secondary to pain, [antalgic gait noted] positive Kemps test Neurological: Speech clear, no gross sensory deficit Has patient had previous pain injection?: Yes Percent improvement in pain since last injection: Minimal Conservative treatment options previously tried: Home exercise plan Length of treatment: Longer than 12 weeks Meds Home Medications and Allergies Home Medications ?Medication ?Instructions ?Recorded ?Confirmed ?Type aspirin 81 mg tablet,delayed 81 mg PO DAILY #90 tabs 03/25/19 05/04/24 Rx release (Adult Low Dose Aspirin) ergocalciferol (vitamin D2) 1,250 50,000 unit PO QWEEK vitamin d 02/28/23 05/04/24 Rx mcg (50,000 unit) capsule deficiency #12 caps simvastatin 10 mg tablet See Rx Instructions .Route 08/21/23 05/04/24 Rx .COMPLEX #90 tabs hydroxyzine pamoate 25 mg capsule 25 mg PO TID PRN itching #30 caps 11/20/23 05/04/24 Rx (Vistaril) levothyroxine 100 mcg capsule 100 mcg PO DAILY #90 caps 11/20/23 05/04/24 Rx ascorbate calcium (vitamin C) 500 500 mg PO DAILY 12/23/23 05/04/24 History mg tablet naproxen 500 mg tablet 500 mg PO BID #30 tabs 12/23/23 05/04/24 Rx methocarbamol 500 mg tablet 500 mg PO BID #28 tabs 02/27/24 05/04/24 Rx New Prescriptions to Start Prescriptions: Allergies Allergy/AdvReac Type Severity Reaction Status Date / Time No Known Allergies Allergy Verified 01/06/24 09:00 Assessment and Plan *Assessment and plan (1) Degenerative disc disease: Status: Acute Category: Medical (2) Lumbar spondylosis: Status: Acute Category: Medical Code(s): M47.816 - Spondylosis without myelopathy or radiculopathy, lumbar region (3) Lumbar facet arthropathy: Status: Acute Category: Medical Code(s): M47.816 - Spondylosis without myelopathy or radiculopathy, lumbar region Plan Patient is experiencing significant pain in her low back that is worse with bending, twisting or lifting. Patient did have limited range of motion of her lumbar spine with a positive Kemps test during today's visit. I did discuss with the patient that I do believe she would benefit from a lumbar medial branch block. Risk and benefits were discussed with the patient and she would like to proceed forward with this plan of care. Patient has tried and failed conservative therapy including oral medications, heat and ice, topicals, at home stretching exercise for longer than 12 weeks. Patient has been experiencing chronic low back pain for years. I will send in a 2-week dose of ropinirole 0.25 mg at bedtime and diclofenac 75 mg twice daily. Patient was counseled to discontinue all other NSAIDs while taking this medication and to take it with food to minimize GI upset. patient was counseled that if she does get significant relief with her first lumbar medial branch block that we will plan on repeating it with the plan to progress forward to a lumbar RFA at a later date. Patient agrees with this plan of care. Patient will be scheduled for her first diagnostic lumbar medial branch block bilaterally L3-L4 and L4-L5 under fluoroscopy. Patient did have moderate to advanced facet disease at these levels along with disc osteophyte complex. Patient has been instructed to contact the clinic with any concerns before the next appointment. Dr. Kwok has reviewed this note and agrees with this plan of care. This note was dictated using voice recognition software and make contain errors or omissions. All injections are used with Lidocaine, Bupivacaine and Depo Medrol. Occasionally urine drug screen is needed to verify patient's compliance with our office pain contract. This is ordered based off specific treatments related to chronic pain with the potential to abuse certain medications.
[2024-05-17 14:31] VITALS: BP 129/88; PULSE 86; RESP 18; O2SAT 97; BMI 41.1
== END 2024-05-17 23:59 | disposition home or self-care (01) ==
PROVIDERS: PCP Nurse Practitioner Family; Visit Provider Nurse Practitioner Family
DX: M47.816 Spondylosis without myelopathy or radiculopathy, lumbar region (principal); Z73.89 Other problems related to life management difficulty
CPT/HCPCS: 99212; G0463

== ENCOUNTER 2024-06-22 10:03 | Day surgery (SDC) | payer MEDICARE, OTHER, SELFPAY ==
[2024-06-22 10:18] VITALS: BP 141/88; PULSE 85; RESP 16; TEMP 36.8; O2SAT 100; BMI 38.6
[2024-06-22 10:45] VITALS: BP 121/73; PULSE 81; RESP 18; O2SAT 95
[2024-06-22] MEDS: LIDOCAINE 1% 5ML PF VIAL 5 ML (10:45)
[2024-06-22] MEDS: BUPIVACAINE 0.25% 10ML INJ 25 MG IJ (10:45)
[2024-06-22] MEDS: DEXAMETHASONE 10MG/ML 1ML VIAL 10 MG (10:45)
[2024-06-22 10:51] VITALS: BP 121/73; PULSE 81; RESP 18; O2SAT 95
--- NOTE | 2024-06-22 10:58 | EXP.PAIN.PRO ---
Procedure Date: 06/22/24 Time: 09:45 Anesthesiologist:: Calderon Chaidez CRNA Complications:: None Pre-procedure Diagnosis:: Degenerative disc lumbar spine multilevels. Lumbar radiculopathy. Lumbar spondylosis. Multilevel lumbar facet arthropathy. Post-procedure Diagnosis:: Same. Indications for Procedure:: Patient is a very pleasant 69-year-old female who comes our clinic today for ROUND ONE lumbar medial branch blocks/facet injections at the bilateral L3-4, L4-5 level. Patient reports low lumbar back pain that is constant, dull, aching. She reports pain intensifies with sitting and/or standing for any length of time. Also, difficulty with lumbar flexion, extension, left and right rotation. She rates her pain 7/10. Procedure Details:: Informed consent was obtained and the risk and benefits of the procedure was explained to the patient. Patient was taken to the procedure room where noninvasive monitors were placed, including noninvasive blood pressure cuff as well as pulse oximeter. The area over the lumbar spine was cleansed using chlorhexidine as a cleansing solution. I anesthetized the skin and subcutaneous tissues with 1% Lidocaine. I placed 22-gauge spinal needles into the facet joint/ medial branches of [L3-L4, L4-L5 bilaterally. Needle placement was confirmed with fluoroscopy. After confirmation of needle placement, each site was injected with 1 mL of 1% lidocaine and 0.25 % Marcaine and 10 mg of Depo-Medrol. A total of 80 mg of depo medrol was used for bilateral medial branch blocks of [L3-L4, L4-L5 bilaterally. Patient tolerated the procedure without difficulty. There were no complications. Plan and Disposition:: Patient was discharged without incident.
[2024-06-22 11:04] VITALS: BP 146/97; PULSE 70; RESP 16; TEMP 36.8; O2SAT 100
== END 2024-06-22 11:04 | disposition home or self-care (01) ==
PROVIDERS: PCP Nurse Practitioner Family; Visit Provider Nurse Anesthetist, Certified Registered
DX: M47.816 Spondylosis without myelopathy or radiculopathy, lumbar region (principal); M51.369 Other intervertebral disc degeneration, lumbar region without mention of lumbar back pain or lower extremity pain
CPT/HCPCS: 64493; 64494; J1100

== ENCOUNTER 2024-07-13 09:29 | Outpatient (POV) | payer MEDICARE, OTHER, SELFPAY ==
--- NOTE | 2024-07-13 09:47 | EXP.PAIN.SOA ---
[facility] Disclaimer: The information contained in this section may have been updated after the patient was seen, as this information can be updated by other users. Medical History Left hip pain Hyperlipemia, mixed Fatigue Hypothyroidism Family History Other Unknown family medical history Social History Smoking Status: Never smoker alcohol intake: current alcohol intake frequency: holidays/special occasions only substance use type: denies use current occupational status: other Travel in the last 8 weeks?: None PM Subjective & Objective Subjective Subjective:: Patient is a pleasant 69-year-old female who presents today for follow-up of her first lumbar medial branch block. Today she rates her pain an 8 out of 10. Patient does state that this injection really did make a significant difference. Patient states on the day she had it done she felt so good that she was actually able to go home and clean out part of her garage. Patient rates it at least 80%. Patient does state however that it was very short-lived and that she is back to her baseline today. She is back to having limited mobility and is unable to complete activities of daily living such as cooking and cleaning. She states she frequently has to stop and take multiple breaks due to the overall back pain. She denies any radiating symptoms to her legs. Patient still has very limited movement with bending, lifting and twisting. Patient does have that she would like to proceed forward with the next step as this is really been beneficial and given her improvement of overall function. She is prescribed ropinirole 0.25 mg at bedtime and diclofenac 75 mg twice daily. Her Luis has been reviewed and is appropriate. Review of Systems: General: No recent weight changes, no fever, no sleep disturbances Respiratory: No cough, no shortness of air, no recurring pulmonary infections Cardiovascular/peripheral vascular: No chest pain, no palpitations, no edema, no shortness of breath Gastrointestinal: No new onset incontinence, normal bowel movements reported Genitourinary: No new onset incontinence Musculoskeletal: Low back pain Psychiatric: [Normal mood/affect] Neurological: [Denies weakness in extremities], [denies balance issues] Pain at rest (0-10 scale): 8 Objective Objective:: Physical Exam: General: Alert and oriented x3, no acute distress, pleasant and cooperative Lungs: Respirations even and unlabored, symmetrical chest expansion Eyes: PERRL Musculoskeletal: Flexion and extension of lumbar [spine] somewhat guarded secondary to pain, [antalgic gait noted] positive Kemps test Neurological: Speech clear, no gross sensory deficit Has patient had previous pain injection?: Yes Percent improvement in pain since last injection: 80% Conservative treatment options previously tried: Home exercise plan Length of treatment: Longer than 12 weeks Meds Home Medications and Allergies Home Medications ?Medication ?Instructions ?Recorded ?Confirmed ?Type aspirin 81 mg tablet,delayed 81 mg PO DAILY #90 tabs 03/25/19 06/22/24 Rx release (Adult Low Dose Aspirin) ergocalciferol (vitamin D2) 1,250 50,000 unit PO QWEEK vitamin d 02/28/23 06/22/24 Rx mcg (50,000 unit) capsule deficiency #12 caps simvastatin 10 mg tablet See Rx Instructions .Route 08/21/23 06/22/24 Rx .COMPLEX #90 tabs hydroxyzine pamoate 25 mg capsule 25 mg PO TID PRN itching #30 caps 11/20/23 06/22/24 Rx (Vistaril) levothyroxine 100 mcg capsule 100 mcg PO DAILY #90 caps 11/20/23 06/22/24 Rx ascorbate calcium (vitamin C) 500 500 mg PO DAILY 12/23/23 06/22/24 History mg tablet naproxen 500 mg tablet 500 mg PO BID #30 tabs 12/23/23 06/22/24 Rx methocarbamol 500 mg tablet 500 mg PO BID #28 tabs 02/27/24 06/22/24 Rx diclofenac sodium 75 mg 75 mg PO BID #28 tabs 05/17/24 06/22/24 Rx tablet,delayed release ropinirole 0.25 mg tablet 0.25 mg PO HS #14 tabs 05/17/24 06/22/24 Rx New Prescriptions to Start Prescriptions: Allergies Allergy/AdvReac Type Severity Reaction Status Date / Time No Known Allergies Allergy Verified 01/06/24 09:00 Assessment and Plan *Assessment and plan (1) Lumbar facet arthropathy: Status: Acute Category: Medical Code(s): M47.816 - Spondylosis without myelopathy or radiculopathy, lumbar region (2) Lumbar spondylosis: Status: Acute Category: Medical Code(s): M47.816 - Spondylosis without myelopathy or radiculopathy, lumbar region (3) Degenerative disc disease: Status: Acute Category: Medical Plan Patient did have a successful first lumbar medial branch block and I did review with him regarding repeat lumbar block. Risk and benefits were discussed with patient and he would like to proceed forward with this plan of care. Patient did have limited range of motion of her lumbar spine during today's visit with a positive Kemps test. Patient was counseled if she does get significant improvement with this second lumbar block we will proceed forward with the lumbar RFA at a later date. Patient acknowledges understanding agrees with plan of care. Patient has continued at home stretching and exercise for longer than 12 weeks with no additional changes. Patient has a longstanding history of chronic back pain for longer than 6 months patient has failed oral medications, heat and ice, topicals. We will schedule her for the second lumbar medial branch block bilaterally L3-L4 and L4-L5 under fluoroscopy. Patient has been instructed to contact the clinic with any concerns before the next appointment. Dr. Kwok has reviewed this note and agrees with this plan of care. This note was dictated using voice recognition software and make contain errors or omissions. All injections are used with Lidocaine, Bupivacaine and dexamethasone unless diagnostic in which no steroids are used. Occasionally urine drug screen is needed to verify patient's compliance with our office pain contract. This is ordered based off specific treatments related to chronic pain with the potential to abuse certain medications.
[2024-07-13 10:31] VITALS: BP 108/79; PULSE 88; RESP 18; O2SAT 98; BMI 38.6
== END 2024-07-13 23:59 | disposition home or self-care (01) ==
LOC: SC.PAIN 09:31
PROVIDERS: PCP Nurse Practitioner Family; Visit Provider Nurse Practitioner Family
DX: M47.816 Spondylosis without myelopathy or radiculopathy, lumbar region (principal); Z79.899 Other long term (current) drug therapy; Z79.1 Long term (current) use of non-steroidal anti-inflammatories (NSAID)
CPT/HCPCS: 99212; G0463

== ENCOUNTER 2024-08-04 08:44 | Outpatient (POV) | payer MEDICARE, OTHER, SELFPAY ==
--- OUTSIDE RECORDS SUMMARY | 2024-08-04 08:48 | XMS_ITS | Clinical Summary ---
Author Organization Healthcare Address [address] 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 Name Role Phone Unavailable Primary Care Provider Unavailabl e Social History Tobacco Use Types Packs/Day Years Used Date Smoking Tobacco: Never Assessed Comments Unknown Sex and Gender Information Value Date Recorded Sex Assigned at Not on file Legal Sex Female 7:52 PM EDT Gender Identity Not on file Sexual Orientation Not on file Plan of Treatment Health Maintenance Due Date Last Done Comments [facility]-Bone Density Scan 1954 [facility]-Depression Screening 1954 [facility]-/Child/Adol SDOH Screenings 1955 [facility]- SDOH Screenings 02/13/1972 [facility]-Adult SDOH Screenings 02/13/1972 [facility]-DTaP,Tdap,and Td Vaccine s (1 - Tdap) 1973 CT Colonography 1999 Colonoscopy 1999 FIT-DNA 1999 FIT 1999 FOBT 1999 Sigmoidoscopy 1999 [facility]-Colorectal Cancer Screening 1999 [facility]-Pneumococcal Vaccine: 50 + Years (1 of 1 - PCV) 02/13/2004 [facility]-Zoster Vaccines (1 of 2) 02/13/2004 [id number] Vaccine (3 - 2023- season) 2023 12/13/2020, 05/13/2020 [facility]-Influenza Vaccine (Seas[place] n Ended) 2024 [facility]-RSV Vaccine: 60+ Years o r (1 - 1-dose 75+ series) 2029 HPV Vaccines Aged Out No longer eligi ble based on patient's age to complete this topic [facility]-HIB Vaccines Aged Out No longer e ligible based on patient's age to complete this topic [facility]-Hepatitis A Vaccines Aged Out No longer eligible based on patient's age to complete this topic [facility]-IPV Vaccines Aged Out No longer e ligible based on patient's age to complete this topic [facility]-Rotavirus Vaccines Aged Out No lo nger eligible based on patient's age to complete this topic
[2024-08-04 08:54] VITALS: BP 140/80; PULSE 71; RESP 14; O2SAT 99; BMI 38.6
--- NOTE | 2024-08-04 09:11 | EXP.PAIN.SOA ---
[facility] Disclaimer: The information contained in this section may have been updated after the patient was seen, as this information can be updated by other users. Medical History Left hip pain Hyperlipemia, mixed Fatigue Hypothyroidism Family History Other Unknown family medical history Social History Smoking Status: Never smoker alcohol intake: current alcohol intake frequency: holidays/special occasions only substance use type: denies use current occupational status: other Travel in the last 8 weeks?: None PM Subjective & Objective Subjective Subjective:: Patient is a pleasant 69-year-old female who presents today for insurance denial of her repeat lumbar medial branch block bilaterally L3-L4 L4-L5. Today she rates her pain at 8 out of 10 however states the last 2 days it was a 10 out of 10. Patient states she is still been experiencing the same chronic low back pain that she was previously and would still like to see about getting in for repeat injections. Patient did have significant improvement with her initial block providing 80% relief however it was short lived and lasted about a day. Patient however did have improved function and was able to clean around her house and her garage. Patient is still having the same pain that is worse with bending, twisting or lifting. She does state the pain interferes with her ability to perform activities of daily living such as cooking and cleaning. Patient has continued conservative therapy with no additional improvement. Her Luis has been reviewed and is appropriate. Review of Systems: General: No recent weight changes, no fever, no sleep disturbances Respiratory: No cough, no shortness of air, no recurring pulmonary infections Cardiovascular/peripheral vascular: No chest pain, no palpitations, no edema, no shortness of breath Gastrointestinal: No new onset incontinence, normal bowel movements reported Genitourinary: No new onset incontinence Musculoskeletal: Low back pain Psychiatric: [Normal mood/affect] Neurological: [Denies weakness in extremities], [denies balance issues] Pain at rest (0-10 scale): 8 Objective Objective:: Physical Exam: General: Alert and oriented x3, no acute distress, pleasant and cooperative Lungs: Respirations even and unlabored, symmetrical chest expansion Eyes: PERRL Musculoskeletal: Flexion and extension of lumbar [spine] somewhat guarded secondary to pain, [antalgic gait noted] positive Kemps test Neurological: Speech clear, no gross sensory deficit Has patient had previous pain injection?: No Conservative treatment options previously tried: Home exercise plan Length of treatment: Longer than 12 weeks Meds Home Medications and Allergies Home Medications ?Medication ?Instructions ?Recorded ?Confirmed ?Type aspirin 81 mg tablet,delayed 81 mg PO DAILY #90 tabs 03/25/19 08/04/24 Rx release (Adult Low Dose Aspirin) ergocalciferol (vitamin D2) 1,250 50,000 unit PO QWEEK vitamin d 02/28/23 08/04/24 Rx mcg (50,000 unit) capsule deficiency #12 caps hydroxyzine pamoate 25 mg capsule 25 mg PO TID PRN itching #30 caps 11/20/23 08/04/24 Rx (Vistaril) levothyroxine 100 mcg capsule 100 mcg PO DAILY #90 caps 11/20/23 08/04/24 Rx ascorbate calcium (vitamin C) 500 500 mg PO DAILY 12/23/23 08/04/24 History mg tablet naproxen 500 mg tablet 500 mg PO BID #30 tabs 12/23/23 08/04/24 Rx methocarbamol 500 mg tablet 500 mg PO BID #28 tabs 02/27/24 08/04/24 Rx diclofenac sodium 75 mg 75 mg PO BID #28 tabs 05/17/24 08/04/24 Rx tablet,delayed release ropinirole 0.25 mg tablet 0.25 mg PO HS #14 tabs 05/17/24 08/04/24 Rx simvastatin 10 mg tablet See Rx Instructions .Route 08/02/24 08/04/24 Rx .COMPLEX #90 tabs New Prescriptions to Start Prescriptions: Allergies Allergy/AdvReac Type Severity Reaction Status Date / Time No Known Allergies Allergy Verified 01/06/24 09:00 Assessment and Plan *Assessment and plan (1) Lumbar facet arthropathy: Status: Acute Category: Medical Code(s): M47.816 - Spondylosis without myelopathy or radiculopathy, lumbar region (2) Lumbar spondylosis: Status: Acute Category: Medical Code(s): M47.816 - Spondylosis without myelopathy or radiculopathy, lumbar region (3) Degenerative disc disease: Status: Acute Category: Medical Plan Patient did have a successful first lumbar medial branch block and I did review with over her insurance denial. Patient was counseled that they do want a pain scale when she felt like the lumbar medial branch block was working the best. Patient states she does have pain in other areas however when she did get this initial injection she would right around a 1 or 2 out of 10 in her low back area. Patient did have significant improved function and was able to do more activity including cleaning around her home and her garage that she has not been able to do in a long time. I did review risk and benefits of repeat injection and she still would like to proceed forward with this option. Patient was counseled if he does get significant improvement with this second diagnostic block we will proceed forward with the lumbar RFA at a later date. Patient acknowledges understanding agrees with plan of care. Patient has continued at home stretching and exercise for longer than 12 weeks with no additional changes. She has had pain going on for longer than 6 months. Patient has failed oral medications, heat and ice, topicals. We will schedule him for the second lumbar medial branch block bilaterally L3-L4 and L4-L5 under fluoroscopy. Patient has been instructed to contact the clinic with any concerns before the next appointment. Dr. Kwok has reviewed this note and agrees with this plan of care. This note was dictated using voice recognition software and make contain errors or omissions. All injections are used with Lidocaine, Bupivacaine and dexamethasone unless diagnostic in which no steroids are used. Occasionally urine drug screen is needed to verify patient's compliance with our office pain contract. This is ordered based off specific treatments related to chronic pain with the potential to abuse certain medications.
== END 2024-08-04 23:59 ==
LOC: SC.PAIN 08:47
PROVIDERS: PCP Nurse Practitioner Family; Visit Provider Nurse Practitioner Family
DX: M47.816 Spondylosis without myelopathy or radiculopathy, lumbar region (principal)
CPT/HCPCS: 99212; G0463

== ENCOUNTER 2024-08-31 09:35 | Day surgery (SDC) | payer MEDICARE, OTHER, SELFPAY ==
[2024-08-31 09:45] VITALS: BP 138/88; PULSE 77; RESP 18; O2SAT 98; BMI 38.6
[2024-08-31] MEDS: BUPIVACAINE 0.25% 10ML INJ 25 MG IJ (09:53)
[2024-08-31] MEDS: LIDOCAINE 1% 5ML PF VIAL 5 ML (09:53)
[2024-08-31 09:54] VITALS: BP 146/92; PULSE 87; RESP 18; O2SAT 96
[2024-08-31 09:56] VITALS: BP 146/92; PULSE 87; RESP 18; O2SAT 96
--- NOTE | 2024-08-31 10:00 | EXP.PAIN.PRO ---
Procedure Date: 08/31/24 Time: 09:45 Anesthesiologist:: Calderon Chaidez CRNA Complications:: None Pre-procedure Diagnosis:: Degenerative disc lumbar spine multiple right lumbar radiculopathy. Lumbar spondylosis. Multilevel lumbar facet arthropathy. Post-procedure Diagnosis:: Same. Indications for Procedure:: Patient is a very pleasant 69-year-old female who comes our clinic today for round 2 of diagnostic lumbar medial branch block at the L3-4, L4-5 level. Patient describes low lumbar back pain as constant, dull, aching. She rates her pain 7/10. She reports significant improvement terms of her overall low back pain with previous injection at the same level. She has difficulty with lumbar flexion, extension, left and right rotation. Difficulty standing. Difficulty sitting. This is all due to the low back pain. Procedure Details:: Informed consent was obtained and the risk and benefits of the procedure was explained to the patient. Patient was taken to the procedure room where noninvasive monitors were placed, including noninvasive blood pressure cuff as well as pulse oximeter. The area over the lumbar spine was cleansed using chlorhexidine as a cleansing solution. I anesthetized the skin and subcutaneous tissues with 1% Lidocaine. I placed 22-gauge spinal needles into the facet joint/ medial branches of L3-4, L4-5 bilaterally. Needle placement was confirmed with fluoroscopy. After confirmation of needle placement, each site was injected with 1 mL of 1% lidocaine and 0.25 % Marcaine 1 mL. Patient tolerated the procedure without difficulty. There were no complications. Plan and Disposition:: Patient was reevaluated 10 minutes post procedure. She reports significant improvement terms of her overall low back pain. She still reports some bilateral leg radicular symptoms. However, standing, sitting, transitioning from sitting to standing with less pain. Patient was discharged without incident.
[2024-08-31 10:09] VITALS: BP 140/90; PULSE 89; RESP 18; O2SAT 94
== END 2024-08-31 10:09 | disposition home or self-care (01) ==
PROVIDERS: PCP Nurse Practitioner Family; Visit Provider Nurse Anesthetist, Certified Registered
DX: M51.16 Intervertebral disc disorders with radiculopathy, lumbar region (principal); M47.26 Other spondylosis with radiculopathy, lumbar region; E78.2 Mixed hyperlipidemia; E03.9 Hypothyroidism, unspecified; Z79.890 Hormone replacement therapy; Z79.82 Long term (current) use of aspirin; Z79.899 Other long term (current) drug therapy
CPT/HCPCS: 64493; 64494; J0665; J2003

== ENCOUNTER 2024-09-29 08:23 | Outpatient (POV) | payer MEDICARE, OTHER, SELFPAY ==
--- OUTSIDE RECORDS SUMMARY | 2024-09-29 08:34 | XMS_ITS | Clinical Summary ---
Author Organization Healthcare Address [address] 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
--- NOTE | 2024-09-29 09:10 | EXP.PAIN.SOA ---
[facility] Disclaimer: The information contained in this section may have been updated after the patient was seen, as this information can be updated by other users. Medical History Left hip pain Hyperlipemia, mixed Fatigue Hypothyroidism Family History Other Unknown family medical history Social History Smoking Status: Never smoker alcohol intake: current alcohol intake frequency: holidays/special occasions only substance use type: denies use current occupational status: other Travel in the last 8 weeks?: None PM Subjective & Objective Subjective Subjective:: Patient is a pleasant 69-year-old female who presents today for her second diagnostic lumbar medial branch block bilaterally L3-L4 and L4-L5 on 08/31/2024. She does state that she had at least 80% the first day following this injection and that it did start to slowly decrease down but did feel like it helps for about 5 days. Patient is stating she is back to her baseline today with chronic pain there at her low back and denies any recent falls or injuries. Patient did feel like following that injection she actually noticed improvement in her posture and was standing straighter and had much more function and was able to do more. Patient would like to proceed forward with the next step as the pain is back to interfering with her ability to perform activities of daily living such as cooking and cleaning. Her Luis has been reviewed and is appropriate. Review of Systems: General: No recent weight changes, no fever, no sleep disturbances Respiratory: No cough, no shortness of air, no recurring pulmonary infections Cardiovascular/peripheral vascular: No chest pain, no palpitations, no edema, no shortness of breath Gastrointestinal: No new onset incontinence, normal bowel movements reported Genitourinary: No new onset incontinence Musculoskeletal: Low back pain Psychiatric: [Normal mood/affect] Neurological: [Denies weakness in extremities], [denies balance issues] Pain at rest (0-10 scale): 8 Objective Objective:: Physical Exam: General: Alert and oriented x3, no acute distress, pleasant and cooperative Lungs: Respirations even and unlabored, symmetrical chest expansion Eyes: PERRL Musculoskeletal: Flexion and extension of lumbar [spine] somewhat guarded secondary to pain, [antalgic gait noted] positive Kemps test Neurological: Speech clear, no gross sensory deficit Has patient had previous pain injection?: Yes What percentage of improvement in pain since last injection?: 80% lasting 5 days Conservative treatment options previously tried: Home exercise plan Length of treatment: Longer than 12 weeks Meds Home Medications and Allergies Home Medications ?Medication ?Instructions ?Recorded ?Confirmed ?Type aspirin 81 mg tablet,delayed 81 mg PO DAILY #90 tabs 03/25/19 08/31/24 Rx release (Adult Low Dose Aspirin) ergocalciferol (vitamin D2) 1,250 50,000 unit PO QWEEK vitamin d 02/28/23 08/31/24 Rx mcg (50,000 unit) capsule deficiency #12 caps hydroxyzine pamoate 25 mg capsule 25 mg PO TID PRN itching #30 caps 11/20/23 08/31/24 Rx (Vistaril) ascorbate calcium (vitamin C) 500 500 mg PO DAILY 12/23/23 08/31/24 History mg tablet methocarbamol 500 mg tablet 500 mg PO BID #28 tabs 02/27/24 08/31/24 Rx simvastatin 10 mg tablet See Rx Instructions .Route 08/02/24 08/31/24 Rx .COMPLEX #90 tabs levothyroxine 100 mcg tablet 100 mcg PO DAILY 08/11/24 08/31/24 History ropinirole 0.25 mg tablet 0.25 mg PO HS #60 tabs 08/11/24 08/31/24 Rx triamcinolone acetonide 0.1 % 0.1 applic topical . 08/11/24 08/31/24 History topical cream diclofenac sodium 75 mg 75 mg PO BID #60 tabs 09/14/24 Rx tablet,delayed release New Prescriptions to Start Prescriptions: Allergies Allergy/AdvReac Type Severity Reaction Status Date / Time No Known Allergies Allergy Verified 08/11/24 10:10 Assessment and Plan *Assessment and plan (1) Degenerative disc disease: Status: Acute Category: Medical (2) Lumbar spondylosis: Status: Acute Category: Medical Code(s): M47.816 - Spondylosis without myelopathy or radiculopathy, lumbar region (3) Lumbar facet arthropathy: Status: Acute Category: Medical Code(s): M47.816 - Spondylosis without myelopathy or radiculopathy, lumbar region Plan Patient did have a successful second lumbar medial branch block and I did review with her that I do believe she would be a candidate for the lumbar RFA. Patient did have more than 80% relief with the second injection and did have very minimal pain during the time that she felt like this was working with may be a 1 out of 10. Patient did have improved function with overall decreased pain and better posture where she was able to stand straighter. Risk and benefits of the lumbar RFA were discussed with patient and she would like to proceed forward with this plan of care. Patient did have limited range of motion of her lumbar spine during today's visit with a positive Kemps test. Patient has continued at home stretching and exercise for longer than 12 weeks that was physician guided with no additional changes. Patient has had chronic low back pain for longer than 6 months. Patient has failed oral medications, heat and ice, topicals. We will schedule her for the lumbar RFA bilaterally L3-L4 and L4-L5 under fluoroscopy. This will be a thermal 80 ?C nonpulsed burn. Patient has been instructed to contact the clinic with any concerns before the next appointment. Dr. Kwok has reviewed this note and agrees with this plan of care. This note was dictated using voice recognition software and make contain errors or omissions. All injections are used with Lidocaine, Bupivacaine and dexamethasone unless diagnostic in which no steroids are used. Occasionally urine drug screen is needed to verify patient's compliance with our office pain contract. This is ordered based off specific treatments related to chronic pain with the potential to abuse certain medications.
[2024-09-29 09:30] VITALS: BP 95/62; PULSE 78; RESP 18; O2SAT 95; BMI 41.1
== END 2024-09-29 23:59 | disposition home or self-care (01) ==
LOC: SC.PAIN 08:24
PROVIDERS: PCP Nurse Practitioner Family; Visit Provider Nurse Practitioner Family
DX: M47.816 Spondylosis without myelopathy or radiculopathy, lumbar region (principal)
CPT/HCPCS: 99212; G0463

== ENCOUNTER 2024-11-02 14:07 | Day surgery (SDC) | payer MEDICARE, OTHER, SELFPAY ==
[2024-11-02 14:14] VITALS: BP 130/85; PULSE 90; RESP 18; O2SAT 96; BMI 38.6
[2024-11-02] MEDS: DEXAMETHASONE 10MG/ML 1ML VIAL 10 MG (14:38)
[2024-11-02] MEDS: LIDOCAINE 1% 5ML PF VIAL 5 ML (14:39)
[2024-11-02] MEDS: BUPIVACAINE 0.25% 10ML INJ 25 MG IJ (14:39)
[2024-11-02 14:43] VITALS: BP 145/81; PULSE 89; RESP 18; O2SAT 96
[2024-11-02 14:44] VITALS: BP 145/81; PULSE 89; RESP 18; O2SAT 96
--- NOTE | 2024-11-02 14:52 | P.PCN_ITS ---
Procedure Date: 11/02/24 Time: 14:45 Anesthesiologist:: Shaw Chaidez CRNA Complications:: None Pre-procedure Diagnosis:: Degenerative disc lumbar spine multilevels. Lumbar radiculopathy. Lumbar facet arthropathy. Lumbar spondylosis. Post-procedure Diagnosis:: Same. Indications for Procedure:: Patient is a pleasant 69-year-old female who comes our clinic today for bilateral lumbar L3-4, L4-5 radiofrequency ablation. Patient describes low lumbar back pain as constant, dull, aching. She reports having difficulty standing for any length of time. She rates her pain 9/10. Procedure Details:: Procedure Details: Lumbar RFA Informed consent was obtained and the risk and benefits of the procedure was explained to the patient. Patient was placed prone on the procedure table. The patient was prepped and draped in sterile fashion. C-arm fluoroscopy was used to view the lumbar spine. The skin and subcutaneous tissues were anesthetized using lidocaine. I placed 20-gauge RF needles into the facet joints of L3-L4, L4-L5 and L5-S1 bilaterally. We underwent sensory stimulation. There is good sensory stimulation at 0.8 V. We underwent motor stimulation. There is no motor stimulation at 2 V. We then anesthetized these levels with lidocaine and Depo- Medrol. I used a total of 10 mg of dexamethasone for all 3 levels. I then burned all 3 levels of L3-L4, L4-5 and L5-S1 bilaterally for 4 minutes at 80 ?C. Patient tolerated the procedure well with no complication. Plan and Disposition:: We will follow-up with this patient in 2 weeks. We will reevaluate her symptoms at that time. Plan and Disposition:: Patient was discharged without incident.
[2024-11-02 15:11] VITALS: BP 142/85; PULSE 86; RESP 16; O2SAT 92
== END 2024-11-02 15:15 | disposition home or self-care (01) ==
PROVIDERS: PCP Nurse Practitioner Family; Visit Provider Nurse Anesthetist, Certified Registered
DX: M47.816 Spondylosis without myelopathy or radiculopathy, lumbar region (principal); E03.9 Hypothyroidism, unspecified; E78.2 Mixed hyperlipidemia; Z79.1 Long term (current) use of non-steroidal anti-inflammatories (NSAID); Z79.890 Hormone replacement therapy; Z79.899 Other long term (current) drug therapy
CPT/HCPCS: 64635; 64636; J0665; J1100; J2003

== ENCOUNTER 2025-01-18 09:48 | Day surgery (SDC) | payer MEDICARE, OTHER, SELFPAY ==
[2025-01-18 09:58] VITALS: BP 130/83; PULSE 93; RESP 18; O2SAT 98; BMI 38.6
[2025-01-18 10:01] VITALS: BP 148/88; PULSE 90; RESP 18; O2SAT 98
[2025-01-18] MEDS: DEXAMETHASONE 10MG/ML 1ML VIAL 10 MG (10:05)
[2025-01-18] MEDS: BUPIVACAINE 0.25% 10ML INJ 25 MG IJ (10:06)
[2025-01-18] MEDS: LIDOCAINE 1% 5ML PF VIAL 5 ML (10:06)
[2025-01-18 10:08] VITALS: BP 148/88; PULSE 90; RESP 18; O2SAT 98
--- NOTE | 2025-01-18 10:15 | P.PCN_ITS ---
Procedure Date: 01/18/25 Time: 10:10 Anesthesiologist:: Shaw Chaidez CRNA Complications:: None Pre-procedure Diagnosis:: Left sacroiliitis. Left greater trochanteric bursitis. Post-procedure Diagnosis:: Same Indications for Procedure:: Patient is a pleasant 69-year-old female who comes to clinic today for a left sacroiliac joint injection of cortisone and local anesthetic. Also, left trochanteric bursa injection. Patient describes left posterior hip pain as well as left lateral hip pain is constant, dull, aching. She rates her pain 7/10. Procedure Details:: Procedure: Left sacroiliac injection under fluoroscopy Informed consent was obtained and the risk and benefits of the procedure were explained to the patient.~ The patient was taken to the procedure room and noninvasive monitors were placed including noninvasive blood pressure cuff and pulse oximeter.~ The patient was placed prone on the procedure table.~ The~ left hip was cleansed using Betadine as a cleansing solution.~ C-arm fluorosocpy was used to view the left SI joint.~ The skin and subcutaneous tissues were anesthetized using Lidocaine 1.5% and a 25-gauge needle.~ After this, a 22-gauge spinal needle was inserted under fluoroscopic guidance into the inferior aspect of the left SI joint.~ Omnipaque dye was injected and a good spread was seen throughout the joint.~ After this, approximately 5 mL of bupivacaine 0.25% and dexamethasone 10 mg was incrementally injected into the sacroiliac joint.~ The patient tolerated the procedure well with no complications.~ The patient was observed in the Pain Clinic for a period of 30-45 minutes, then discharged home neurologically intact.~ Procedure:Left trochanteric bursa injection under fluoroscopy We then moved to the left trochanteric bursa.~ C-arm fluoroscopy was used to view the left greater trochanter.~ The skin and subcutaneous tissues overlying the left greater trochanter were anesthetized using lidocaine, 1.5% and a 25- gauge needle.~ After this, a 22-gauge spinal needle was inserted and advanced until it contacted the left greater trochanter.~ Dye was injected and good spread was seen throughout the left trochanteric bursa. After this, approximately 5 mL of bupivacaine, 0.25% and dexamethasone 10 mg was incrementally injected into the left trochanteric bursa.~ The patient tolerated the procedure well with no complications. Plan and Disposition:: Patient was discharged without incident.
[2025-01-18 10:30] VITALS: BP 140/88; PULSE 85; RESP 16; O2SAT 97
== END 2025-01-18 10:30 | disposition home or self-care (01) ==
PROVIDERS: PCP Nurse Practitioner Family; Visit Provider Nurse Anesthetist, Certified Registered
DX: M46.1 Sacroiliitis, not elsewhere classified (principal); M70.62 Trochanteric bursitis, left hip; E78.5 Hyperlipidemia, unspecified; E03.9 Hypothyroidism, unspecified; Z79.899 Other long term (current) drug therapy; Z79.890 Hormone replacement therapy; Z79.82 Long term (current) use of aspirin
CPT/HCPCS: G0260; J0665; J1100; J2003